=== PATIENT | male | born 1945 | race Caucasian/White ===

== ENCOUNTER → 2018-09-21 | Outpatient (CLI) | payer MEDICARE ==
--- NOTE | 2018-09-21 11:36 | RADIOLOGY IMAGING REPORT ---
FACILITY: [facility] PATIENT NAME: Aubrey Lilly : 1945 MR: [id number] V: [id number] EXAM DATE: ORDERING PHYSICIAN: SHADI KULKARNI TECHNOLOGIST: Location: [facility] Patient: Aubrey Lilly : 1945 Visit/Account:[id number] Date of Sevice: 09/21/2018 CHEST PA LAT Indication: Smoking and cough, possible pneumonia Comparison: None. Findings: Lungs: Right upper lobe airspace opacity is seen. Left lung is clear. Mediastinum/pulmonary vasculature: Heart size and pulmonary vasculature are normal. Bones/soft tissues: Superior endplate compression changes are seen at T12. Remaining vertebral body heights are maintained. IMPRESSION: Right upper lobe pneumonia. Report Dictated By: Poncho Decker at 09/21/2018 11:27 AM Report E-Signed By: Poncho Decker at 09/21/2018 11:29 AM WSN:[id number]
== END ==
LOC: RAD 10:27
PROVIDERS: ATTEND Physician Assistant
DX: J18.1 Lobar pneumonia, unspecified organism (principal)
CPT/HCPCS: 71046

== ENCOUNTER 2019-01-01 00:04 | Emergency (ER) | payer MEDICARE ==
--- NOTE | 2019-01-01 00:09 | ER Report ---
History and Physical Time Seen By MD: 00:08 NOLAN/ADEOLA CHIEF COMPLAINT: Syncope, forehead laceration HISTORY OF PRESENT ILLNESS: 73-year-old male without significant past medical history he takes no medications. He got up to go to the bathroom. He had a syncopal episode and fell in the baeza. His heard a thud and found him face down in the hallway without laceration to the upper part of his forehead into the scalp. Patient denies feeling ill upon retiring to bed. He denies significant alcohol. He of one beer with dinner. Patient has no known cardiac history. Patient denies recent infectious symptoms REVIEW OF SYSTEMS: Respiratory: No cough, no dyspnea. Cardiovascular: No chest pain, no palpitations. Gastrointestinal: No vomiting, no abdominal pain. Musculoskeletal: No back pain. Allergies: Coded Allergies: No Known Drug Allergies (Unverified , 01/01/19) Home Meds Reported Medications Aspirin (ASPIRIN) 81 Mg Tab.chew, 81 MG PO QDAY, TAB.CHEW 01/01/19 Reviewed Nurses Notes: Yes Old Medical Records Reviewed: Yes Constitutional Vital Sign - Last 24 Hours 01/01/19 01/01/19 01/01/19 01/01/19 00:11 00:11 00:18 00:30 Temp 98.0 Pulse 52 Resp 18 B/P (MAP) 130/65 130/65 (86) 125/68 (87) Pulse Ox 89 O2 Delivery Room Air O2 Flow Rate 1.0 01/01/19 01/01/19 01/01/19 01/01/19 00:34 01:00 01:04 01:30 Pulse 52 57 Resp 25 26 B/P (MAP) 123/62 (82) 111/59 (76) Pulse Ox 92 97 01/01/19 01:34 Pulse 47 Resp 10 Pulse Ox 96 Intake and Output 12/31/18 12/31/18 01/01/19 15:00 23:00 07:00 Intake Total 1000 ml Balance 1000 ml Physical Exam General Appearance: The patient is alert, has no immediate need for airway protection and no current signs of toxicity. Vital signs stable, afebrile, pulse ox normal, cardiac rhythm monitor, palpation of the head and neck reveal no tenderness or trauma except for a 4 cm laceration at the vertex of the scalp with approximately 2 cm of the laceration in the forehead, 2 cm in the scalp HEENT: Pupils equal and round no injection. Oropharynx without redness or exudate, mucous membranes are moist Respiratory: Chest is non tender, lungs are clear to auscultation. No chest wall tenderness Cardiac: regular rate and rhythm, bradycardic, no murmur Gastrointestinal: Abdomen is soft and non tender, no masses, bowel sounds no rmal. Musculoskeletal: Neck: Neck is supple and non tender. Extremities have full range of motion and are non tender. Skin: No rashes or lesions. DIFFERENTIAL DIAGNOSIS: After history and physical exam differential diagnosis was considered for syncope including but not limited to vasovagal syncope, arrhythmia, dehydration, and blood loss. Medical Decision Making Data Points Result Diagram: 01/01/19 0039 01/01/1938 Laboratory Hematology Test 01/01/19 00:26 01/01/19 00:39 Urine Color Yellow Urine Clarity Clear Urine pH 6.0 pH (4.8-9.5) Urine Specific [place] 1.021 Urine Protein Negative mg/dL (NEGATIVE) Urine Glucose (UA) Negative mg/dL (NEGATIVE) Urine Ketones Negative mg/dL (NEGATIVE) Urine Blood Negative (NEGATIVE) Urine Nitrite Negative (NEGATIVE) Urine Bilirubin Negative (NEGATIVE) Urine Urobilinogen 0.2 mg/dL (0.2-1.9) Urine Leukocyte Esterase Negative (NEGATIVE) Urine RBC <1 /HPF (0-2/HPF) Urine WBC 1 /HPF (0-5/HPF) Urine Squamous Epithelial Cells None /LPF (</=FEW) Urine Bacteria Negative /HPF (NONE-FEW) Urine Hyaline Casts Few /LPF (NONE-FEW) Urine Mucus Few /HPF (NONE-FEW) Red Blood Count 5.21 M/uL (4.00-5.60) Mean Corpuscular Volume 93.7 fL (80.0-96.0) Mean Corpuscular Hemoglobin 31.3 pg (26.0-33.0) Mean Corpuscular Hemoglobin Concent 33.4 g/dL (32.0-36.0) Red Cell Distribution Width 13.7 % (11.5-14.5) Mean Platelet Volume 9.6 fL (7.2-11.1) Neutrophils (%) (Auto) 55.3 % (39.4-72.5) Lymphocytes (%) (Auto) 32.4 % (17.6-49.6) Monocytes (%) (Auto) 7.0 % (4.1-12.4) Eosinophils (%) (Auto) 3.8 % (0.4-6.7) Basophils (%) (Auto) 1.5 % (0.3-1.4) Nucleated RBC Relative Count (auto) 0.1 /100WBC Neutrophils # (Auto) 2.6 K/uL (2.0-7.4) Lymphocytes # (Auto) 1.5 K/uL (1.3-3.6) Monocytes # (Auto) 0.3 K/uL (0.3-1.0) Eosinophils # (Auto) 0.2 K/uL (0.0-0.5) Basophils # (Auto) 0.1 K/uL (0.0-0.1) Nucleated RBC Absolute Count (auto) 0.01 K/uL D-Dimer Quantitative (PE/DVT) 0.36 ug/ml (0-0.50) Sodium Level 141 mmol/L (137-145) Potassium Level 3.9 mmol/L (3.5-5.0) Chloride Level 106 mmol/L (98-107) Carbon Dioxide Level 28 mmol/L (22-30) Blood Urea Nitrogen 17 mg/dl (9-21) Creatinine 1.10 mg/dl (0.66-1.25) Glomerular Filtration Rate Calc > 60.0 Random Glucose 100 mg/dl (75-110) Calcium Level 8.8 mg/dl (8.4-10.2) Total Bilirubin 0.4 mg/dl (0.2-1.3) Aspartate Amino Transf (AST/SGOT) 31 U/L (0-35) Alanine Aminotransferase (ALT/SGPT) 31 U/L (0-56) Alkaline Phosphatase 92 U/L (0-126) Troponin I < 0.012 ng/ml Total Protein 6.1 g/dl (6.3-8.2) Albumin 3.6 g/dl (3.5-5.0) Amylase Level 95 U/L (0-110) Lipase 207 U/L (23-300) Chemistry Test 01/01/19 00:26 01/01/19 00:39 Urine Color Yellow Urine Clarity Clear Urine pH 6.0 pH (4.8-9.5) Urine Specific [place] 1.021 Urine Protein Negative mg/dL (NEGATIVE) Urine Glucose (UA) Negative mg/dL (NEGATIVE) Urine Ketones Negative mg/dL (NEGATIVE) Urine Blood Negative (NEGATIVE) Urine Nitrite Negative (NEGATIVE) Urine Bilirubin Negative (NEGATIVE) Urine Urobilinogen 0.2 mg/dL (0.2-1.9) Urine Leukocyte Esterase Negative (NEGATIVE) Urine RBC <1 /HPF (0-2/HPF) Urine WBC 1 /HPF (0-5/HPF) Urine Squamous Epithelial Cells None /LPF (</=FEW) Urine Bacteria Negative /HPF (NONE-FEW) Urine Hyaline Casts Few /LPF (NONE-FEW) Urine Mucus Few /HPF (NONE-FEW) White Blood Count 4.7 k/uL (4.5-11.0) Red Blood Count 5.21 M/uL (4.00-5.60) Hemoglobin 16.3 g/dL (14.0-18.0) Hematocrit 48.8 % (42.0-52.0) Mean Corpuscular Volume 93.7 fL (80.0-96.0) Mean Corpuscular Hemoglobin 31.3 pg (26.0-33.0) Mean Corpuscular Hemoglobin Concent 33.4 g/dL (32.0-36.0) Red Cell Distribution Width 13.7 % (11.5-14.5) Platelet Count 193 K/uL (150-450) Mean Platelet Volume 9.6 fL (7.2-11.1) Neutrophils (%) (Auto) 55.3 % (39.4-72.5) Lymphocytes (%) (Auto) 32.4 % (17.6-49.6) Monocytes (%) (Auto) 7.0 % (4.1-12.4) Eosinophils (%) (Auto) 3.8 % (0.4-6.7) Basophils (%) (Auto) 1.5 % (0.3-1.4) Nucleated RBC Relative Count (auto) 0.1 /100WBC Neutrophils # (Auto) 2.6 K/uL (2.0-7.4) Lymphocytes # (Auto) 1.5 K/uL (1.3-3.6) Monocytes # (Auto) 0.3 K/uL (0.3-1.0) Eosinophils # (Auto) 0.2 K/uL (0.0-0.5) Basophils # (Auto) 0.1 K/uL (0.0-0.1) Nucleated RBC Absolute Count (auto) 0.01 K/uL D-Dimer Quantitative (PE/DVT) 0.36 ug/ml (0-0.50) Glomerular Filtration Rate Calc > 60.0 Calcium Level 8.8 mg/dl (8.4-10.2) Total Bilirubin 0.4 mg/dl (0.2-1.3) Aspartate Amino Transf (AST/SGOT) 31 U/L (0-35) Alanine Aminotransferase (ALT/SGPT) 31 U/L (0-56) Alkaline Phosphatase 92 U/L (0-126) Troponin I < 0.012 ng/ml Total Protein 6.1 g/dl (6.3-8.2) Albumin 3.6 g/dl (3.5-5.0) Amylase Level 95 U/L (0-110) Lipase 207 U/L (23-300) Coagulation Test 01/01/19 00:39 D-Dimer Quantitative (PE/DVT) 0.36 ug/ml Urinalysis Test 01/01/19 00:26 Urine Color Yellow Urine Clarity Clear Urine pH 6.0 pH (4.8-9.5) Urine Specific [place] 1.021 Urine Protein Negative mg/dL (NEGATIVE) Urine Glucose (UA) Negative mg/dL (NEGATIVE) Urine Ketones Negative mg/dL (NEGATIVE) Urine Blood Negative (NEGATIVE) Urine Nitrite Negative (NEGATIVE) Urine Bilirubin Negative (NEGATIVE) Urine Urobilinogen 0.2 mg/dL (0.2-1.9) Urine Leukocyte Esterase Negative (NEGATIVE) Urine RBC <1 /HPF (0-2/HPF) Urine WBC 1 /HPF (0-5/HPF) Urine Squamous Epithelial Cells None /LPF (</=FEW) Urine Bacteria Negative /HPF (NONE-FEW) Urine Hyaline Casts Few /LPF (NONE-FEW) Urine Mucus Few /HPF (NONE-FEW) EKG/Imaging EKG Interpretation 12 lead EK Rhythm: Sinus bradycardia, rate 52 bpm [place]: normal QRS: normal ST segments: normal, no evidence of ischemia or dysrhythmia ED Course/Re-evaluation Clinical Indication for ER IV: Hydration, IV Access ED Course Patient was admitted to an examination room. H&P was done. The dental diagnoses was considered. Patient with a nonfocal neurologic examination. There is no evidence of trauma or tenderness to his neck or head except for laceration at the very top of the forehead extending into the scalp. The wound lays close together quite normally. But does gap open with traction. Laceration was repaired as noted below. Patient was treated with IV fluid hydration. His EKG is unremarkable except that bradycardic at 52 bpm. I suspect the patient's cause of syncope was his bradycardic rhythm. Patient has an extensive workup is otherwise unremarkable. He has felt no head or neck pain. Patient a nonfocal neurologic examination. His mentation was normal. A do not think a CT scan of the head was warranted, nor CT of the cervical spine. Patient's laceration was repaired as noted below. Patient advised follow-up with cardiology for evaluation of a pacemaker. Patient's advised to stay well- hydrated. He is advised to follow-up with primary care is any further symptoms. He is cautioned return to the ER for any worsening. Procedure: Laceration repair. Verbal consent was obtained from the patient. The 4.2 cm Laceration on the upper forehead extending into the scalp, just slightly left of midline was anesthetized in the usual fashion. The wound was scrubbed, draped and explored to its base with a gloved finger. There were no deep structures involved.. The wound was repaired with rosaline 7. The wound repair was simple. The procedure was performed by myself. Decision to Disposition Date: Jan 01, 2019 Decision to Disposition Time: 01:45 Depart Departure Latest Vital Signs Vital Signs Date Time Temp Pulse Resp B/P (MAP) Pulse Ox O2 Delivery O2 Flow Rate FiO2 01/01/19 01:34 47 10 96 01/01/19 01:30 111/59 (76) 01/01/19 00:18 1.0 01/01/19 00:11 98.0 Room Air Impression: Primary Impression: Syncope Additional Impressions: Sinus bradycardia Forehead laceration Condition: Improved Disposition: HOME OR SELF-CARE Referrals: EVETTE MATHIS DO (PCP) Patient Instructions: Bradycardia (ED), Facial Laceration (ED), Syncope (ED) Additional Instructions: Folllow up with cardiology at next available appointment Perform daily wound care to your scalp laceration, gently cleanse it with a mild shampoo, apply a thin layer of anabolic ointment Have your rosaline removed in one week Problem Qualifiers Primary Impression: Syncope Syncope type: vasovagal syncope Qualified Codes: R55 - Syncope and collapse Additional Impressions: Forehead laceration Encounter type: initial encounter Qualified Codes: S01.81XA - Laceration without foreign body of other part of head, initial encounter CAMRYN CINTRON DO Jan 01, 2019 00:09
[2019-01-01] MEDS ORDERED: NS(*) 0.9% 1000 ML BAG 1,000 ML IV ONE (00:12)
[2019-01-01] MEDS ORDERED: DIPHTH/TETANUS/ACEL. PERTUSSIS IM ONLY ONE (00:15)
[2019-01-01 00:43] LABS: PLATELET COUNT, AUTOMATED 193 K/uL (150-450)
--- NOTE | 2019-01-01 00:50 | EKG ---
FACILITY: [facility] PATIENT NAME: EFRAÍN TILLMAN : [id number] MR: [id number] V: [id number] EXAM DATE: ORDERING PHYSICIAN: CAMRYN CINTRON TECHNOLOGIST: EROS Carlisle Reason : SYNCOPE Blood Pressure : / mmHG Vent. Rate : 052 BPM Atrial Rate : 052 BPM P-R Int : 140 ms QRS Dur : 074 ms QT Int : 456 ms P-R-T Axes : 071 022 054 degrees QTc Int : 424 ms Sinus bradycardia Possible left atrial enlargement Decreased R wave progression anterior leads Nonspecific ST findings inferolaterally No previous ECGs available Confirmed by FERNANDO GUZMAN ([id number]) on 01/01/2019 5:44:22 AM Referred By: Confirmed By:FERNANDO GUZMAN
[2019-01-01 01:30] VITALS: BP 111/59
[2019-01-01] MEDS ORDERED: ASPI81TA94 PO (04:24)
== END 2019-01-01 01:59 | disposition home or self-care (01) ==
LOC: ER 00:40
DX: R55 Syncope and collapse (principal); S01.81XA Laceration without foreign body of other part of head, initial encounter; R00.1 Bradycardia, unspecified
CPT/HCPCS: 12002; 81001; 82150; 83690; 84484; 85025; 85379; 90471; 90715; 93005; 96360; 99283; J7030; 82040; 82247; 82310; 82374; 82435; 82565; 82947; 84075; 84132; 84155; 84295; 84450; 84460; 84520; 99284